=== PATIENT | female | born 1985 | race Hispanic/Latino ===

== ENCOUNTER 2022-03-25 00:51 | Day surgery (SDC) | payer MEDICAID ==
[2022-03-25 01:03] VITALS: BMI 36.8
[2022-03-25] MEDS ORDERED: hydrALAZINE 20 MG/ML VIAL SLOW IVP PRN (01:41)
[2022-03-25] MEDS ORDERED: Lactated Ringer's 1,000 ML IV SCH (01:45)
[2022-03-25] MEDS: Metoclopramide HCl 10 MG/2 ML VIAL IVP SCH ×2 (01:59→02:34)
[2022-03-25] MEDS ORDERED: diphenhydrAMINE 50 MG/ML VIAL IVP SCH (02:00)
[2022-03-25 03:05] LABS: Bilirubin Neg (Negative); Blood, Urine 50 (Negative); Glucose, Urine (Dipstick) Normal (Negative); Ketone, Urine 150 mg/dL (Negative); Leukocyte Negative (Negative); Nitrite Negative (Negative); Protein, Urine (Dipstick) 500 mg/dl (Neg-Trace)
[2022-03-25 03:15] LABS: Clarity Slightly Cloudy (Clear)
[2022-03-25 03:16] LABS: Bacteria/HPF Rare-Few HPF (None Seen); Squamous Epithelial 0-3 HPF (0-3); Transitional Epithelial 0-3 HPF (None Seen); WBC/HPF None Seen HPF (0-3)
[2022-03-25] MEDS ORDERED: Fioricet 325/50/40 mg Tablet PO PRN (07:06)
[2022-03-25] MEDS ORDERED: Acetaminophen 325 MG TAB PO PRN (07:07)
[2022-03-25] MEDS ORDERED: Labetalol HCl 100 MG/20 ML VIAL SLOW IVP PRN (10:10)
[2022-03-25] MEDS ORDERED: Calcium Gluc 4.6 MEQ/10 ML (100 MG/ML) SLOW IVP PRN (10:10)
[2022-03-25] MEDS ORDERED: Lorazepam 2 MG/ML VIAL SLOW IVP PRN (10:10)
[2022-03-25] MEDS ORDERED: Magnesium Sulfate 20 gm/500 ml 20 GM/500 ML BAG IVPB SCH (10:15)
[2022-03-25] MEDS ORDERED: Magnesium Sulfate 20 gm/500 ml 20 GM/500 ML BAG ONE (10:15)
[2022-03-25] MEDS ORDERED: Labetalol HCl 100 MG/20 ML VIAL ONE (10:15)
[2022-03-25] MEDS ORDERED: Betamet Acet/Betamet Na Ph 30 MG/5 ML VIAL ONE (10:53)
[2022-03-25 10:57] VITALS: BP 163/95
[2022-03-25] MEDS ORDERED: Betamet Acet/Betamet Na Ph 30 MG/5 ML VIAL IM SCH (12:00)
[2022-03-25] MEDS ORDERED: NIFEdipine XL 60 MG TAB PO SCH (21:00)
== END 2022-03-25 12:50 | disposition short-term general hospital (02) ==
LOC: CSHLD/OP 00:51
PROVIDERS: ATTEND Obstetrics & Gynecology
DX: O10.912 Unspecified pre-existing hypertension complicating pregnancy, second trimester (principal); O99.891 Other specified diseases and conditions complicating pregnancy; R51.9 Headache, unspecified; R80.9 Proteinuria, unspecified; O24.112 Pre-existing type 2 diabetes mellitus, in pregnancy, second trimester; O99.212 Obesity complicating pregnancy, second trimester; O09.522 Supervision of elderly multigravida, second trimester; Z3A.24 24 weeks gestation of pregnancy; Z79.4 Long term (current) use of insulin; Z79.899 Other long term (current) drug therapy; Z88.5 Allergy status to narcotic agent
CPT/HCPCS: 51701; 76815; 81001; 82570; 84156; 96361; 96365; 96366; 96372; 96375; 99285; J0702; J1200; J2765; J3475